=== PATIENT | female | born 2000 | race African-American/Black ===

== ENCOUNTER 2023-10-06 10:17 | Emergency (ER) | payer MEDICAID, SELFPAY ==
[2023-10-06] VITALS (26 sets, daily range): BP systolic 90–121; BP diastolic 59–69; PULSE 61–83; RESP 11–24; TEMP 37.1; O2SAT 98–100
[2023-10-06] MEDS: Normal Saline Flush 10 ML SYR IVP (12:09)
[2023-10-06] MEDS: Normal Saline 1,000 ML 1000 ML IV (12:09)
--- NOTE | 2023-10-06 12:17 | ED.GENADUL_ITS ---
Discharge Plan Disposition Patient Disposition: Home Discharge Details Clinical Impression: Dizziness, Hypokalemia, Hypomagnesemia Primary Care Provider: Unknown,Unknown ED Provider: Adrienne Romero Home Meds and New Rx's Prescriptions: New ondansetron 4 mg tablet,disintegrating 4 mg PO Q8H PRN (Reason: nausea and vomiting) Qty: 10 0RF meclizine 25 mg tablet 25 mg PO BID PRN (Reason: dizziness) Qty: 7 0RF No Action zonisamide 100 mg capsule 250 mg PO .daily pm Patient Comments: at night, recent up of dose lamotrigine [Lamictal] 150 mg tablet 300 mg PO BID Discharge Instructions Instructions: Vertigo ED Additional Instructions: * please increase your water intake * you take over the counter magnesium at night, this might help with dizziness and nausea * you can follow up on your seizure drug levels in your portal and with your primary physician HPI General Date/Time Provider Initiated Documentation: 10/06/23 10:57 . Limitations to Documentation: no limitations . Information obtained by: patient . HPI Narrative: 23-year-old female with past medical history including seizure disorder presents for evaluation of dizziness. She reports the symptoms have been ongoing for the last 4 days. Associated with some mild headache that is consistent with prior migraines. Reports this morning she had some nausea and 2 episodes of vomiting. Denies any fever chills neck stiffness. Has not had a seizure since July. Reports that she did vomit of her morning medicine. Related Data Home Medications ?Medication ?Instructions ?Recorded ?Confirmed lamotrigine 150 mg tablet 300 mg PO BID 10/06/23 10/06/23 (Lamictal) meclizine 25 mg tablet 25 mg PO BID PRN dizziness #7 tabs 10/06/23 ondansetron 4 mg disintegrating 4 mg PO Q8H PRN nausea and 10/06/23 tablet vomiting #10 tabs zonisamide 100 mg capsule 250 mg PO .daily pm 10/06/23 10/06/23 Previous Rx's ?Medication ?Instructions ?Recorded meclizine 25 mg tablet 25 mg PO BID PRN dizziness #7 tabs 10/06/23 ondansetron 4 mg disintegrating 4 mg PO Q8H PRN nausea and 10/06/23 tablet vomiting #10 tabs Allergies Allergy/AdvReac Type Severity Reaction Status Date / Time No Known Allergies Allergy Unverified 10/06/23 10:23 General Stated Complaint: Dizzy/Sync GÓMEZ: 3 Exam Narrative Exam Narrative: Review of Systems: All systems reviewed & are unremarkable except as noted in HPI and below Well-developed, no acute distress NCAT PERRL, normal conjunctiva , no nystagmus when looking to the left no meningeal signs RRR Unlabored respiratory effort, ctab Nondistended abdomen soft non tender Extremities w/o deformity, no cyanosis, no edema No rashes or lesions. no focal neurologic deficits, normal sensation, gait and strength throughout Appropriate mood and affect Course Vital Signs Vital signs: Vital Signs Temperature 37.1 C 10/06/23 10:29 Pulse 75 10/06/23 10:29 Respiratory Rate 16 10/06/23 10:29 Blood Pressure 90/59 L 10/06/23 10:29 Pulse Oximetry 99 10/06/23 10:29 Temperature 37.1 C 10/06/23 10:29 Temperature Source Temporal Artery Scan 10/06/23 10:29 Pulse 80 10/06/23 12:03 Pulse 70 10/06/23 12:10 Respiratory Rate 11 L 10/06/23 12:10 Respiratory Effort Normal, Non-Labored 10/06/23 11:58 Respiratory Depth Normal 10/06/23 11:58 Respiratory Pattern Normal 10/06/23 11:58 Blood Pressure 106/63 10/06/23 12:03 Blood Pressure Mean 75 10/06/23 12:03 Blood Pressure Position Sitting 10/06/23 10:29 Pulse Oximetry 99 10/06/23 12:10 Oxygen Delivery Method Room Air 10/06/23 10:29 Oxygen Flow Rate 0 10/06/23 10:29 Pain Level 7 10/06/23 10:29 Medical Decision Making Emergent evaluation of dizziness. Initial differential includes vertigo, dehydration, electrolyte derangement. I doubt acute intracranial process such as mass or infectious etiology given her benign neurologic exam. She has no symptoms concerning for central etiology of her dizziness. I do suspect that she might have some volume depletion given that she has been outside a lot for the last 4 days and it has been fairly warm. Initial blood pressure slightly low. Patient was resuscitated with IV fluids. Lab work was obtained. She had some mild hypokalemia as well as mild hypo-Magnasemia This was repleted orally. Drug levels were sent off and patient advised to follow these tests on her portal with her PCP. Patient had Zofran and meclizine sent to the pharmacy to use as needed. Return precautions advised. Discharged in good condition. Medical Records Medical records reviewed: Yes I reviewed the patient's medical records. Lab Data Lab results reviewed: Yes I reviewed the patient's lab results. Quality:SDOH Health Related Social Needs: No Data to Display [facility] All Active Problems (Updated 10/06/23 @ 12:55 by Adrienne Romero MD) Hypomagnesemia (Acute) Hypokalemia (Acute) Dizziness (Acute) Social History Smoking/Tobacco Use Status: Never Smoking risk assessment performed?: Yes Alcohol Intake: current Alcohol Intake frequency: holidays/special occasions only Alcohol type: beer Drug use: Occasionally Substance use type: marijuana Housing: house Do you feel safe at home: Yes Do you feel safe in your relationship?: Yes
[2023-10-06 12:21] LABS: Abs Immature Grans 0.02 10^3/uL (0.0-0.06); Absolute Basophil Count 0.03 10^3/uL (0.0-0.2); Absolute Lymphocyte Count 1.27 10^3/uL (1.2-3.4); Absolute Monocyte Count 0.13 10^3/uL (0.1-0.8); Absolute Neutrophil Count 5.55 10^3/uL (1.2-6.7); Basophils % 0.4 %; HGB 15.3 g/dL (11.2-15.7); Immature Grans % 0.3 %; Lymphocytes % 18.1 %; MCV 91 fL (80-95); MPV 8.9 fL (8.0-11.0); Monocytes % 1.9 %; Neutrophils % 79.3 %; Platelet Count 282 10^3/uL (130-400); RBC 4.94 10^6/uL (3.93-5.22); RDW 11.1 % (11.7-14.6); RDW-SD 37.3 fL
[2023-10-06] MEDS: lamoTRIgine 100 MG TAB 300 MG PO (12:26)
[2023-10-06] MEDS: Meclizine 25 MG TAB PO (12:34)
[2023-10-06 12:40] LABS: ALT 21 U/L (14-59); AST 10 U/L (15-37); Albumin 4.3 g/dL (3.4-5.0); Alkaline Phosphatase 60 U/L (46-116); Anion Gap 11.1 mmol/L (3-11); BUN 10 mg/dL (7-18); Bilirubin, Total 0.49 mg/dL (0.2-1.0); CO2 23.9 mmol/L (21.0-32.0); Calcium 9.1 mg/dL (8.5-10.1); Chloride 106 mmol/L (98-107); Estimated GFR 81.18 (mL/min/1.73m2); Glucose 103 mg/dL (74-106); Magnesium 1.8 mg/dL (1.8-2.4); Potassium 3.4 mmol/L (3.5-5.1); Sodium 141 mmol/L (136-145); Total Protein 7.8 g/dL (6.4-8.2)
[2023-10-06] MEDS: Magnesium Oxide 400 MG TAB PO (13:01)
[2023-10-06] MEDS: Potassium Chloride 20 MEQ TABCR 40 MEQ PO (13:02)
[2023-10-07 16:07] LABS: Lamotrigine 22.2 mcg/mL (3.0-15.0)
[2023-10-07 22:12] LABS: Zonisamide 14 mcg/mL (10-40)
== END 2023-10-06 13:22 | disposition home or self-care (01) ==
PROVIDERS: Emergency Provider Emergency Medicine
DX: R42 Dizziness and giddiness (principal); E87.6 Hypokalemia; E83.42 Hypomagnesemia; G40.909 Epilepsy, unspecified, not intractable, without status epilepticus
CPT/HCPCS: 36415; 80053; 80175; 80203; 96360; 99284; 83735; 85025

== ENCOUNTER 2024-09-21 11:55 | Emergency (ER) | payer MEDICAID, SELFPAY ==
--- NOTE | 2024-09-21 12:15 | RT.EKG_ITS ---
APPROVED REPORT Exam: Resting ECG Reason for Exam: Dizzyness/dehydration Patient Location: E HR:84 bpm ECG Measurements Heart Rate 84 AXIS IL 152 P 88 QRSd 88 QRS 93 QT 334 T 20 QTc 396 Conclusion Sinus rhythm 84 normal axis no stemi
[2024-09-21 12:19] VITALS: BP 108/75; PULSE 84; RESP 16; TEMP 36.7; O2SAT 98
[2024-09-21] MEDS: Normal Saline 1,000 ML 1000 ML IV (13:50)
[2024-09-21 13:52] LABS: Abs Immature Grans 0.02 10^3/uL (0.0-0.06); HCT 46.6 % (36.0-46.0); HGB 16.2 g/dL (11.2-15.7); Immature Grans % 0.3 %; MCH 30.9 pg (27.0-33.0); MCHC 34.8 % (32.0-36.0); MCV 89 fL (80-95); MPV 8.9 fL (8.0-11.0); Platelet Count 247 10^3/uL (130-400); RBC 5.24 10^6/uL (3.93-5.22); RDW 11.0 % (11.7-14.6); RDW-SD 35.6 fL; WBC 7.13 10^3/uL (4.4-10.8)
--- NOTE | 2024-09-21 14:25 | W.ED.GENAD ---
Discharge Plan Disposition Patient Disposition: Home Condition: Stable Discharge Details Clinical Impression: Dizziness, Vertigo, Orthostatic hypotension Primary Care Provider: Unknown,Unknown ED Provider: Adrienne Romero Home Meds and New Rx's Prescriptions: New ondansetron 4 mg tablet,disintegrating 4 mg PO Q6H PRN (Reason: nausea and vomiting) Qty: 30 0RF meclizine 25 mg tablet 25 mg PO TID PRN (Reason: dizziness) Qty: 30 0RF No Action levetiracetam [Keppra] 250 mg tablet 250 mg PO BID zonisamide 100 mg capsule 250 mg PO .daily pm Patient Comments: at night, recent up of dose lamotrigine [Lamictal] 150 mg tablet 300 mg PO BID ondansetron 4 mg tablet,disintegrating 4 mg PO Q8H PRN (Reason: nausea and vomiting) Qty: 10 0RF meclizine 25 mg tablet 25 mg PO BID PRN (Reason: dizziness) Qty: 7 0RF Discharge Instructions Instructions: Vertigo ED Additional Instructions: You were treated today for dizziness and low blood pressure. Symptoms likely due to to vertigo and poor oral intake. We have been unable to check all of your lab work because of an issue with your IV and you have chosen not to allow us to do any more blood draws or IV sticks. Please follow-up closely with your PCP for recheck of blood work to make sure that there are no significant abnormalities. A prescription has been sent to the pharmacy for meclizine which can help with vertigo as well as Zofran to help with nausea. Please make sure to drink lots of fluids including Gatorade and Pedialyte to help with your electrolytes. Return if you are feeling worse or unable to keep anything down. HPI General Date/Time Provider Initiated Documentation: 09/21/24 12:45. Limitations to Documentation: no limitations. Information obtained by: patient. HPI Narrative: 24-year-old female with past medical history of seizures presents for evaluation of nausea. She states that she feels like she is having vertigo for the last 3 days. She states that she has had this before and had meclizine for it. She reports that she has had some mild nausea but no vomiting poor. Poor oral intake, not really eating much, but states that she is drinking sips of water. She denies any fever or chills. She reports history of vertigo last year. Related Data Home Medications ?Medication ?Instructions ?Recorded ?Confirmed lamotrigine 150 mg tablet 300 mg PO BID 10/06/23 09/21/24 (Lamictal) meclizine 25 mg tablet 25 mg PO BID PRN dizziness #7 tabs 10/06/23 09/21/24 ondansetron 4 mg disintegrating 4 mg PO Q8H PRN nausea and 10/06/23 09/21/24 tablet vomiting #10 tabs zonisamide 100 mg capsule 250 mg PO .daily pm 10/06/23 09/21/24 levetiracetam 250 mg tablet 250 mg PO BID 09/21/24 09/21/24 (Keppra) meclizine 25 mg tablet 25 mg PO TID PRN dizziness #30 tabs 09/21/24 ondansetron 4 mg disintegrating 4 mg PO Q6H PRN nausea and 09/21/24 tablet vomiting #30 tabs Previous Rx's ?Medication ?Instructions ?Recorded meclizine 25 mg tablet 25 mg PO BID PRN dizziness #7 tabs 10/06/23 ondansetron 4 mg disintegrating 4 mg PO Q8H PRN nausea and 10/06/23 tablet vomiting #10 tabs meclizine 25 mg tablet 25 mg PO TID PRN dizziness #30 tabs 09/21/24 ondansetron 4 mg disintegrating 4 mg PO Q6H PRN nausea and 09/21/24 tablet vomiting #30 tabs Allergies Allergy/AdvReac Type Severity Reaction Status Date / Time No Known Allergies Allergy Unverified 09/21/24 10:54 General Stated Complaint: Dizzy/Sync GÓMEZ: 3 Exam Narrative Exam Narrative: Review of Systems: All systems reviewed & are unremarkable except as noted in HPI and below Well-developed, no acute distress NCAT PERRL, normal conjunctiva Moist mucous membranes RRR, no murmur Unlabred respiratory effort, clear bilaterally Nondistended abdomen soft, nt no focal neurologic deficits, no nystagmus, no dysmetria flat affect Course Vital Signs Vital signs: Vital Signs Temperature 36.7 C 09/21/24 12:19 Pulse 84 09/21/24 12:19 Respiratory Rate 16 09/21/24 12:19 Blood Pressure 108/75 09/21/24 12:19 Pulse Oximetry 98 09/21/24 12:19 Temperature 36.7 C 09/21/24 12:19 Temperature Source Oral 09/21/24 12:19 Pulse 84 09/21/24 12:19 Respiratory Rate 16 09/21/24 12:19 Respiratory Effort Normal, Non-Labored 09/21/24 13:53 Respiratory Depth Normal 09/21/24 13:53 Respiratory Pattern Normal 09/21/24 13:53 Blood Pressure 108/75 09/21/24 12:19 Blood Pressure Position Sitting 09/21/24 12:19 Pulse Oximetry 98 09/21/24 12:19 Oxygen Delivery Method Room Air 09/21/24 12:19 Oxygen Flow Rate 0 09/21/24 12:19 Pain Level 0 09/21/24 12:19 Lab/Test Results Lab/Test Results: Laboratory Tests Range/Units 09/21/24 13:44 WBC (4.4-10.8) 10^3/uL 7.13 RBC (3.93-5.22) 10^6/uL 5.24 H Hgb (11.2-15.7) g/dL 16.2 H Hct (36.0-46.0) % 46.6 H MCV (80-95) fL 89 MCH (27.0-33.0) pg 30.9 MCHC (32.0-36.0) % 34.8 RDW (11.7-14.6) % 11.0 L Plt Count (130-400) 10^3/uL 247 MPV (8.0-11.0) fL 8.9 Immature Gran % % 0.3 Neutrophils % % 49.3 Lymphocytes % % 43.8 Monocytes % % 4.9 Eosinophils % % 1.0 Basophils % % 0.7 Nucleated RBC % (0.0-0.3) % 0.0 Absolute Neutrophils (1.2-6.7) 10^3/uL 3.52 Absolute Lymphocytes (1.2-3.4) 10^3/uL 3.12 Absolute Monocytes (0.1-0.8) 10^3/uL 0.35 Absolute Eosinophils (0.0-0.7) 10^3/uL 0.07 Absolute Basophils (0.0-0.2) 10^3/uL 0.05 Medical Decision Making Emergent evaluation of lightheadedness. Dizziness. Patient referred from [facility]. I reviewed the workup at that facility. Urine dip unremarkable. U not . Patient had significant orthostatic changes on her orthostatic blood pressures. Patient is on a fair amount of seizure medication, but has not had a seizure since May. Reports compliance with her meds, poor oral intake. Initial differential includes electrolyte derangement, vertigo, dehydration. Will begin fluid resuscitation, check lab work. Will repeat orthostatic vital signs after fluids.. Patient received a liter of IV fluids report that she is feeling much better. A CBC was able to be drawn. This is unremarkable. Additional blood work had hemolyzed and patient refused any additional blood draws. She does not want any additional treatment in the emergency department. I have encouraged the patient to follow-up closely with PCP for reevaluation of any ongoing symptoms and repeat of any blood work as deemed necessary. Patient was prescribed Zofran and meclizine to help with her symptoms and encouraged to drink more fluids. Return precautions advised. PFSH All Active Problems (Updated 09/21/24 @ 14:49 by Adrienne Romero MD) Orthostatic hypotension (Acute) Vertigo (Acute) Dizziness (Acute) Social History Smoking/Tobacco Use Status: Never Smoking risk assessment performed?: Yes Alcohol Intake: current Alcohol Intake frequency: holidays/special occasions only Alcohol type: beer Drug use: Occasionally Substance use type: marijuana Housing: house Do you feel safe at home: Yes Do you feel safe in your relationship?: Yes
== END 2024-09-21 15:49 | disposition home or self-care (01) ==
PROVIDERS: Emergency Provider Emergency Medicine
DX: R42 Dizziness and giddiness (principal); I95.1 Orthostatic hypotension; R11.0 Nausea
CPT/HCPCS: 99284 ×2; 36416; 82962; 80053; 80175; 80203; 82550; 93005; 96360; 80177; 83735; 84443; 85025; 93010